=== PATIENT | male | born 1990 | race Caucasian/White ===

== ENCOUNTER 2018-08-20 20:21 | Emergency (ER) | payer SELFPAY ==
[~2018-08-20] VITALS: Ht 172.7 cm; Wt 64.0 kg
[2018-08-20] MEDS ORDERED: METHOCARBAMOL 500 MG TABLET PO ONE (21:30)
[2018-08-20] MEDS ORDERED: LIDOCAINE 5% TRANSDERMAL PATCH TD ONE (21:30)
[2018-08-20] MEDS ORDERED: KETOROLAC TROMETHAMINE 30 MG/ML VIAL IM ONE (21:30)
[2018-08-20 22:01] VITALS: BP 122/78
== END 2018-08-20 22:02 | disposition home or self-care (01) ==
LOC: EMS 20:22
DX: M54.6 Pain in thoracic spine (principal); M25.511 Pain in right shoulder; V49.50XA Passenger injured in collision with unspecified motor vehicles in traffic accident, initial encounter; Y93.89 Activity, other specified; Y92.488 Other paved roadways as the place of occurrence of the external cause; Y99.8 Other external cause status
CPT/HCPCS: 96372; 99283; J1885